=== PATIENT | female | born 1965 | race Caucasian/White ===

== ENCOUNTER 2019-06-19 13:41 | Emergency (ER) | payer OTHER ==
[~2019-06-19] VITALS: Ht 165.1 cm; Wt 97.1 kg
--- NOTE | 2019-06-19 14:03 | PHYS DOC ---
Adult General Chief Complaint Chief Complaint: CHEST PAIN HPI HPI 54-year-old female presents to the emergency department with complaints of mid back pain described as achy which moved to the front center aspect of her chest. She became diaphoretic, nauseous as well. Patient states she's had a history of back pain in the past however has never radiated to the front of her chest. She denies any headache or visual changes. No history of hypertension per the patient. Patient currently states her symptoms have resolved. She is not tachycardic on examination EKG is unremarkable. Nothing makes her pain worse, nothing makes her pain better. Review of Systems Review of Systems Constitutional: Denies fever or chills [] HENT: Denies nasal congestion or sore throat [] Respiratory: Denies cough or shortness of breath [] Cardiovascular: No additional information not addressed in HPI [] GI: + nausea, no abdominal pain Musculoskeletal: center back pain with radiation to the front Integument: Denies rash or skin lesions [] Neurologic: Denies headache, focal weakness or sensory changes [] All other systems were reviewed and found to be within normal limits, except as documented in this note. Current Medications Current Medications Current Medications Medications (Trade) Dose Ordered Sig/Min Start Time Stop Time Status Last Admin Dose Admin Info (CONTRAST GIVEN -- Rx MONITORING) 1 each PRN DAILY PRN 06/19/19 14:30 06/21/19 14:29 Iohexol (Omnipaque 350 Mg/ml) 90 ml 1X ONCE 06/19/19 14:30 06/19/19 14:32 DC Multi-Ingredient Mouthwash/Gargle (Gi Cocktail) 20 ml 1X ONCE 06/19/19 16:00 06/19/19 16:01 DC 06/19/19 16:18 20 ML Allergies Allergies Allergies Coded Allergies Type Severity Reaction Last Updated Verified No Known Drug Allergies 06/19/19 No Physical Exam Physical Exam Constitutional: Well developed, well nourished, no acute distress, non-toxic appearance. [] HENT: Normocephalic, atraumatic, bilateral external ears normal, oropharynx moist, no oral exudates, nose normal. [] Eyes: PERRLA, EOMI, conjunctiva normal, no discharge. [] Cardiovascular:Heart rate regular rhythm, no murmur [] Lungs & Thorax: Bilateral breath sounds clear to auscultation [] Abdomen: Bowel sounds normal, soft, no tenderness, no masses, no pulsatile masses. [] Skin: Warm, dry, no erythema, no rash. [] Back: No tenderness, no CVA tenderness. [] Extremities: No tenderness, no edema. [] Neurologic: Alert and oriented X 3, no focal deficits noted. [] Psychologic: Affect normal, judgement normal, mood normal. [] Current Patient Data Vital Signs Vital Signs Date Time Temp Pulse Resp B/P (MAP) Pulse Ox O2 Delivery O2 Flow Rate FiO2 06/19/19 13:50 97.8 80 12 126/73 (90) 96 Room Air 97.8 Lab Values Laboratory Tests Test 06/19/19 14:00 White Blood Count 4.6 x10^3/uL (4.0-11.0) Red Blood Count 4.58 x10^6/uL (3.50-5.40) Hemoglobin 13.6 g/dL (12.0-15.5) Hematocrit 40.8 % (36.0-47.0) Mean Corpuscular Volume 89 fL (79-100) Mean Corpuscular Hemoglobin 30 pg (25-35) Mean Corpuscular Hemoglobin Concent 33 g/dL (31-37) Red Cell Distribution Width 14.4 % (11.5-14.5) Platelet Count 287 x10^3/uL (140-400) Neutrophils (%) (Auto) 53 % (31-73) Lymphocytes (%) (Auto) 37 % (24-48) Monocytes (%) (Auto) 8 % (0-9) Eosinophils (%) (Auto) 1 % (0-3) Basophils (%) (Auto) 1 % (0-3) Neutrophils # (Auto) 2.4 x10^3/uL (1.8-7.7) Lymphocytes # (Auto) 1.7 x10^3/uL (1.0-4.8) Monocytes # (Auto) 0.4 x10^3/uL (0.0-1.1) Eosinophils # (Auto) 0.1 x10^3/uL (0.0-0.7) Basophils # (Auto) 0.0 x10^3/uL (0.0-0.2) Sodium Level 143 mmol/L (136-145) Potassium Level 4.4 mmol/L (3.5-5.1) Chloride Level 105 mmol/L (98-107) Carbon Dioxide Level 31 mmol/L (21-32) Anion Gap 7 (6-14) Blood Urea Nitrogen 14 mg/dL (7-20) Creatinine 0.8 mg/dL (0.6-1.0) Estimated GFR (Cockcroft-Gault) 74.5 BUN/Creatinine Ratio 18 (6-20) Glucose Level 130 mg/dL (70-99) H Calcium Level 9.5 mg/dL (8.5-10.1) Total Bilirubin 0.4 mg/dL (0.2-1.0) Aspartate Amino Transferase (AST) 85 U/L (15-37) H Alanine Aminotransferase (ALT) 55 U/L (14-59) Alkaline Phosphatase 83 U/L (46-116) Troponin I Quantitative < 0.017 ng/mL (0.000-0.055) Total Protein 7.9 g/dL (6.4-8.2) Albumin 3.7 g/dL (3.4-5.0) Albumin/Globulin Ratio 0.9 (1.0-1.7) L Laboratory Tests 06/19/19 14:00 Laboratory Tests 06/19/19 14:00 EKG EKG EKG reviewed, heart rate 82, normal sinus rhythm, no evidence of acute ST elevation VT, non-urgent EKG normal axis[] Interpretation Time: Interpretation time 1355 Radiology/Procedures Radiology/Procedures [][facility] [address] [place], [place] [id number] IMAGING REPORT Signed PATIENT: CONY GRAVES ACCOUNT: [id number] : 1965 LOCATION: ER AGE: 54 SEX: F EXAM STATUS: REG ER ORD. PHYSICIAN: HOANG ABDALLA MD REASON: mid back pain, radiates to front, diaphoretic r/o dissection PROCEDURE: CT ANGIOGRAPHY CHEST CTA OF THE CHEST WITH AND WITHOUT CONTRAST Clinical indications: Mid back pain which radiates to the front. Diaphoresis. Technique: Noncontrast axial localizer was performed. After IV infusion of 90 cc of Omnipaque 350, helical CT scanning of the chest was performed using the CT thoracic aortic protocol. A coronal MIP reconstruction was generated. PQRS compliance Statement One or more of the following individualized dose reduction techniques were utilized for this study: 1. Automated exposure control 2. Adjustment of the mA and/or kV according to patient size 3. Use of iterative reconstruction technique Comparison: None available. Findings: No focal aneurysmal dilatation or dissection of the thoracic aorta is evident. Heart size is normal and no pericardial effusion is seen. The pulmonary arteries are not optimally opacified on this thoracic aortic protocol study. No obvious central pulmonary emboli are evident. Calcified left hilar lymph nodes are seen and calcified subcarinal lymph nodes are seen due to old granulomatous disease. No enlarged thoracic lymphadenopathy is evident. No adrenal mass is seen. There is linear atelectasis or scarring within the left lower lobe. No lung consolidation or lung mass is evident. There is a 4 mm noncalcified lung nodule within the left lower lobe. No pleural effusion or pneumothorax is seen. Small nodularity is evident within the anterior wall of the distal trachea. Proximal bronchial tree is patent. No lytic process is seen. IMPRESSION: No thoracic aortic dissection or focal aneurysmal dilatation is seen. Linear atelectasis or scarring within left lower lobe. No lung consolidation. 4 mm noncalcified left lower lobe lung nodule. If the patient is at high risk for malignancy, then a follow-up chest CT in 12 months is recommended as per Fleischner guidelines. Mild nodularity within the anterior wall of the trachea. This could be due to adherent mucus or could be secondary to papillomatosis. Electronically signed by: Preet Pugh MD (06/19/2019 3:25 PM) [place] [id number] DICTATED and SIGNED BY: PREET PUGH MD DATE: 06/19/19 1525 Course & Med Decision Making Course & Med Decision Making Pertinent Labs and Imaging studies reviewed. (See chart for details) []54-year-old female presents to the emergency department with complaints of mid back pain described as achy which moved to the front center aspect of her chest. She became diaphoretic, nauseous as well. Patient states she's had a hist ory of back pain in the past however has never radiated to the front of her chest. She denies any headache or visual changes. No history of hypertension per the patient. Patient currently states her symptoms have resolved. She is not tachycardic on examination EKG is unremarkable. Nothing makes her pain worse, nothing makes her pain better. Labs reviewed - troponin within normal limits. CBC, CMP reviewed without evidence of acute abnormality CT chest reviewed as below IMPRESSION: No thoracic aortic dissection or focal aneurysmal dilatation is seen. Linear atelectasis or scarring within left lower lobe. No lung consolidation. 4 mm noncalcified left lower lobe lung nodule. If the patient is at high risk for malignancy, then a follow-up chest CT in 12 months is recommended as per Fleischner guidelines. Mild nodularity within the anterior wall of the trachea. This could be due to adherent mucus or could be secondary to papillomatosis. Electronically signed by: Preet Pugh MD (06/19/2019 3:25 PM) [place] [id number] Discussed dc with patient Recommend GI follow up Recommend follow up with Pulmonary regarding the pulmonary nodule (low risk patient however defer management to Pulm) Plan pain medications, flexeril on discharge Dragon Disclaimer Dragon Disclaimer This electronic medical record was generated, in whole or in part, using a voice recognition dictation system. Departure Departure Impression: Primary Impression: Back pain Additional Impression: Chest pain Disposition: HOME, SELF-CARE Condition: STABLE Patient Instructions: Chest Pain (Nonspecific), [id number] Additional Instructions: Recommend follow up with PCP 3 - 5 days Return to the ER with worsening symptoms, intractable pain, fever, altered mental status Tylenol/Motrin as needed for pain [place] rx provided, take as directed Flexeril rx provided, take as directed Consider further evaluation with GI as outpatient Incidental finding of 4mm lung nodule, defer to Dr. Espinoza for follow up recommendations Scripts Cyclobenzaprine Hcl (CYCLOBENZAPRINE HCL) 5 Mg Tablet 1 TAB PO TID, #30 TAB Prov: HOANG ABDALLA MD 06/19/19 Hydrocodone/Apap 5-325 (NORCO 5-325 TABLET) 1 Each Tablet 1-2 TAB PO Q4-6HRS for pain, #14 TAB Prov: HOANG ABDALLA MD 06/19/19 Problem Qualifiers Primary Impression: Back pain Back pain location: back pain in other location Chronicity: acute Qualified Codes: M54.9 - Dorsalgia, unspecified Additional Impression: Chest pain Chest pain type: other chest pain Qualified Codes: R07.89 - Other chest pain HOANG ABDALLA MD Jun 19, 2019 14:03
[2019-06-19 14:13] LABS: BASO % 1 % (0-3); EOS # 0.1 x10^3/uL (0.0-0.7); EOS % 1 % (0-3); HEMATOCRIT 40.8 % (36.0-47.0); HEMOGLOBIN 13.6 g/dL (12.0-15.5); LYMPH # 1.7 x10^3/uL (1.0-4.8); LYMPH % 37 % (24-48); MEAN CORPUSCULAR HEMOGLOBIN 30 pg (25-35); MEAN CORPUSCULAR HGB CONC 33 g/dL (31-37); MEAN CORPUSCULAR VOLUME 89 fL (79-100); MONO # 0.4 x10^3/uL (0.0-1.1); MONO % 8 % (0-9); NEUT # 2.4 x10^3/uL (1.8-7.7); NEUT % 53 % (31-73); PLATELET COUNT 287 x10^3/uL (140-400); RED BLOOD COUNT 4.58 x10^6/uL (3.50-5.40); RED CELL DISTRIBUTION WIDTH 14.4 % (11.5-14.5); WHITE BLOOD COUNT 4.6 x10^3/uL (4.0-11.0)
[2019-06-19 14:28] LABS: CALCIUM 9.5 mg/dL (8.5-10.1); CREATININE 0.8 mg/dL (0.6-1.0); GFR 74.5; POTASSIUM 4.4 mmol/L (3.5-5.1)
[2019-06-19] MEDS ORDERED: CONTRAST GIVEN. MC PRN (14:30)
[2019-06-19] MEDS ORDERED: IOHEXOL 350 MG/ML 100 ML VIAL. IV ONE ×2 (14:30)
[2019-06-19 14:33] LABS: ALBUMIN 3.7 g/dL (3.4-5.0); ALBUMIN/GLOBULIN RATIO 0.9 (1.0-1.7); TOTAL BILIRUBIN 0.4 mg/dL (0.2-1.0); TOTAL PROTEIN 7.9 g/dL (6.4-8.2)
[2019-06-19] MEDS ORDERED: LIDO:MAALOX 1:1 20 ML SINGLE DOSE. SWSW ONE (16:00)
--- NOTE | 2019-06-19 16:41 | RAD ---
CTA OF THE CHEST WITH AND WITHOUT CONTRAST Clinical indications: Mid back pain which radiates to the front. Diaphoresis. Technique: Noncontrast axial localizer was performed. After IV infusion of 90 cc of Omnipaque 350, helical CT scanning of the chest was performed using the CT thoracic aortic protocol. A coronal MIP reconstruction was generated. PQRS compliance Statement One or more of the following individualized dose reduction techniques were utilized for this study: 1. Automated exposure control 2. Adjustment of the mA and/or kV according to patient size 3. Use of iterative reconstruction technique Comparison: None available. Findings: No focal aneurysmal dilatation or dissection of the thoracic aorta is evident. Heart size is normal and no pericardial effusion is seen. The pulmonary arteries are not optimally opacified on this thoracic aortic protocol study. No obvious central pulmonary emboli are evident. Calcified left hilar lymph nodes are seen and calcified subcarinal lymph nodes are seen due to old granulomatous disease. No enlarged thoracic lymphadenopathy is evident. No adrenal mass is seen. There is linear atelectasis or scarring within the left lower lobe. No lung consolidation or lung mass is evident. There is a 4 mm noncalcified lung nodule within the left lower lobe. No pleural effusion or pneumothorax is seen. Small nodularity is evident within the anterior wall of the distal trachea. Proximal bronchial tree is patent. No lytic process is seen. IMPRESSION: No thoracic aortic dissection or focal aneurysmal dilatation is seen. Linear atelectasis or scarring within left lower lobe. No lung consolidation. 4 mm noncalcified left lower lobe lung nodule. If the patient is at high risk for malignancy, then a follow-up chest CT in 12 months is recommended as per Fleischner guidelines. Mild nodularity within the anterior wall of the trachea. This could be due to adherent mucus or could be secondary to papillomatosis. Electronically signed by: Kuldeep Pugh MD (06/19/2019 3:25 PM) [place] [id number]
[2019-06-19 16:45] VITALS: BP 125/78
[2019-06-19] MEDS ORDERED: CYCL5TAB PO (17:09)
[2019-06-19] MEDS ORDERED: HYDR-3164 PO (17:09)
[2019-06-19] MEDS ORDERED: ONDANSETRON ODT 4 MG TAB.RAPDIS. PO ONE (17:30)
--- NOTE | 2019-06-20 07:54 | EKG ---
[facility] [address] [place] [id number] Test Date: 2019-06-19 Test Time: 13:48:33 Pat Name: CONY GRAVES Department: Room: Gender: F Penciller: : 1965 Requested By: HOANG ABDALLA Order Number: [id number] Reading MD: Measurements Intervals Winn Rate: 82 P: 34 [place]: 150 QRS: 20 QRSD: 84 T: 24 QT: 390 QTc: 459 Interpretive Statements SINUS RHYTHM NORMAL ECG RI6.01 No previous ECG available for comparison
== END 2019-06-19 17:31 | disposition home or self-care (01) ==
LOC: ER 13:41
DX: M54.6 Pain in thoracic spine (principal); R07.89 Other chest pain; R11.0 Nausea
CPT/HCPCS: 36415; 71275; 80053; 84484; 85025; 93005; 99285; Q0162; Q9967